=== PATIENT | female | born 1960 | race Caucasian/White ===

== ENCOUNTER 2020-03-24 08:09 | Outpatient (REF) | payer OTHER, SELFPAY ==
--- NOTE | 2020-03-24 08:14 | MM_ITS ---
EXAMINATION: MM SCREENING DIGITAL BREAST TOMOSYNTHESIS, BILATERAL CLINICAL INFORMATION: Screening. Asymptomatic. The lifetime risk of breast cancer based on the Tyrer-Cuzick Model is 6%. COMPARISON: Mammography: 03/19/2019, 03/10/2018 TECHNIQUE: Digital breast tomosynthesis is performed in both the craniocaudal and mediolateral oblique views along with computer-aided detection (CAD). Synthesized 2D images are generated from the tomosynthesis. Additional exaggerated left CC view is provided. FINDINGS: There are scattered areas of fibroglandular density (ACR BI-RADS breast composition Category b). There are no significant masses, abnormal calcifications, or other abnormalities. The axilla and skin contours are unremarkable. MM/MM tomosynthesis screening BI IMPRESSION: No mammographic evidence of malignancy. ASSESSMENT: BI-RADS 1: Negative RECOMMENDATION: Routine annual mammography screening. This patient's information was entered into a reminder system with a target due date for their next mammogram.
[2020-03-24 10:24] LABS: Hematocrit 38.3 % (37-47); Hemoglobin 12.4 g/dl (12.0-16.0); Mean Corpuscular HGB Conc 32.4 g/dl (31.0-35.0); Mean Corpuscular Hemoglobin 28.9 pg (27.0-33.0); Mean Corpuscular Volume 89.3 fL (80-98); Mean Platelet Volume 9.5 fL (9.4-12.3); Platelet Count 275 X10*3/uL (160-400); Red Blood Count 4.29 X10*6/uL (4.20-5.50); Red Cell Distribution Width 12.7 % (11.0-16.0); White Blood Count 3.9 X10*3/uL (4.8-10.8)
[2020-03-24 10:57] LABS: Alanine Aminotransferase 16 U/L (0-31); Albumin Level 4.6 g/dL (3.5-5.0); Alkaline Phosphatase 87 U/L (39-117); Anion Gap 14 (12-20); Aspartate Amino Transferase 21 U/L (5-31); Bilirubin Total 0.5 mg/dL (0.0-1.0); Blood Urea Nitrogen 15 mg/dL (9-16); Calcium 8.7 mg/dL (8.4-10.2); Carbon Dioxide 29 mmol/L (22-29); Chloride 102 mmol/L (96-108); Cholesterol 183 mg/dL; Estimated Glomerular Filt Rate > 60; Glucose Fasting 96 mg/dL (60-99); HDL Cholesterol 60 mg/dL; LDL Cholesterol Calculated 113 mg/dl; Sodium 141 mmol/L (135-145); Total Protein 7.2 g/dL (6.5-8.0); Triglycerides 53 mg/dL
== END 2020-03-24 08:10 | disposition home or self-care (01) ==
LOC: HO.MAMMO 08:09
PROVIDERS: PCP Internal Medicine; Visit Provider Nurse Practitioner Adult Health
DX: Z12.31 Encounter for screening mammogram for malignant neoplasm of breast (principal); E78.2 Mixed hyperlipidemia
CPT/HCPCS: 36415; 77063; 77067; 80053; 80061; 85027

== ENCOUNTER 2020-04-08 09:20 | Day surgery (SDC) | payer OTHER, SELFPAY ==
[2020-04-04 10:33] VITALS: BMI 25.4
--- NOTE | 2020-04-07 10:26 | P.CONAN_ITS ---
Documented by User: Laurie Kruger 04/07/20 10:26 HPI - Anesthesia Eval Consult details Narrative: 59yo F for Upper Endoscopy FORMERLY [facility], [facility] Past Medical History Medical History Depression Elevated cholesterol History of anxiety Surgical History Surgical History Hx of dilation and curettage Hx of sinus surgery Hx of tubal ligation Social History Social History Smoking Status: Unknown if ever smoked Use of substances other than those prescribed or required for medical reasons: No Advance Directives Information Provided: No Meds Allergies Allergy/AdvReac Type Severity Reaction Status Date / Time clarithromycin [From Biaxin] Allergy Unknown Verified 04/04/20 10:38 Home Medications Medication Instructions Recorded Confirmed Type Probiotic 04/04/20 04/04/20 History amitriptyline 1 tab PO DAILY 04/04/20 04/04/20 History lorazepam 0.5 mg PO BID PRN 04/04/20 04/04/20 History multivitamin 1 tab PO DAILY 04/04/20 04/04/20 History omeprazole 1 cap PO DAILY 04/04/20 04/04/20 History paroxetine HCl 1 tab PO DAILY 04/04/20 04/04/20 History simvastatin 1 tab PO BEDTIME 04/04/20 04/04/20 History Exam Exam Date and Time: April 07, 2020 1026 Height,Weight and Vital Signs: Height 5 ft 3.5 in Weight 66.224 kg Pertinent Lab Results Pertinent Lab Results: grossly nml Assessment and Plan Assessment Anesthesia Assessment: Chart Reviewed Documented by User: Jelly Mckeon 04/08/20 10:41 [facility] Past Medical History Medical History Depression Elevated cholesterol History of anxiety Surgical History Surgical History Hx of dilation and curettage Hx of sinus surgery Hx of tubal ligation Social History Social History Smoking Status: Unknown if ever smoked Use of substances other than those prescribed or required for medical reasons: No Advance Directives Information Provided: No Meds Allergies Allergy/AdvReac Type Severity Reaction Status Date / Time clarithromycin [From Biaxin] Allergy Unknown Verified 04/04/20 10:38 Home Medications Medication Instructions Recorded Confirmed Type Probiotic 04/04/20 04/04/20 History amitriptyline 1 tab PO DAILY 04/04/20 04/04/20 History lorazepam 0.5 mg PO BID PRN 04/04/20 04/04/20 History multivitamin 1 tab PO DAILY 04/04/20 04/04/20 History omeprazole 1 cap PO DAILY 04/04/20 04/04/20 History paroxetine HCl 1 tab PO DAILY 04/04/20 04/04/20 History simvastatin 1 tab PO BEDTIME 04/04/20 04/04/20 History Exam Airway Mallampati Class: I TM Dist: >3cm Neck ROM: Full Loose/Missing/Broken Teeth: No Heart: RRR Lungs: CTA Assessment and Plan Assessment Anesthesia Assessment: Anesthesia Plan Discussed and Chart Reviewed Final Anesthetic Review NPO: Yes ASA Class: II Final Preanesthetic Review: Meds/Allgs Chart Reviewed, Consent Obtained/Reviewed and Anes Risks/Benef Reviewed Patient Risk: Low Procedure Risk: Intermediate Anesthetic Plan Anesthetic Plan: MAC: Disposition: Standard PACU
--- NOTE | 2020-04-08 09:58 | MHC.SHP ---
Pre-Procedural Eval Section B Chief Complaint: GERD Details of Present Illness: GERD Relevant Family History (Specify if Yes): No Relevant Social History: None Present Medications: see Short Stay Collaborative assessment Medical History: No relevant PMH History of Previous Operations: No relevant previous surgery Allergies: Allergies Allergy/AdvReac Type Severity Reaction Status Date / Time clarithromycin [From Biaxin] Allergy Unknown Verified 04/04/20 10:38 Review of Systems Sugical H&P ROS: Negative: Constitution, Cardiovascular, Respiratory, Neurological, Psychiatric, Hem-Onc, Allergic/Immunologic, Gastrointestinal, Genitourinary, Musculoskeletal, Integumentary, Endocrine and Eyes/Ears/Nose/Throat Exam Surgical H&P Exam: Normal: HEENT, Normal: Heart, Normal: Lungs, Normal: Extremities, Normal: Abdomen, Normal: Skin and Normal: Neurological Plan Diagnosis/Plan: Unchanged Patient has been examined and remains a candidate for the planned procedure
[2020-04-08 10:02] VITALS: BP 153/89; PULSE 81; RESP 20; TEMP 35.9; O2SAT 99
[2020-04-08] MEDS: Lactated Ringers 1,000 ML 100 ML IVCONT (10:14)
[2020-04-08 11:13] VITALS: BP 136/83; PULSE 97; RESP 16; TEMP 36.9; O2SAT 95
--- NOTE | 2020-04-08 11:21 | PM.OP ---
Brief Operative Note Date of procedure: 04/08/20 Pre-op diagnosis: gerd Post-op diagnosis: same Procedure: egd Surgeon: rEic Rebollar Anesthesia: MAC Estimated blood loss (mL): 5 Pathology: other (antral,egj biopsies) Condition: stable Disposition: PACU
[2020-04-08 11:29] VITALS: BP 128/86; PULSE 91; RESP 18; O2SAT 99
--- NOTE | 2020-04-08 11:48 | OP_ITS ---
SURGEON: Eric Rebollar MD INDICATIONS: Gastroesophageal reflux disease. PREOPERATIVE DIAGNOSIS: POSTOPERATIVE DIAGNOSIS: PROCEDURE PERFORMED: Upper endoscopy with biopsy. ESTIMATED BLOOD LOSS: COMPLICATIONS: ANESTHESIA: Monitored anesthesia care. ASSISTANTS: SPECIMENS: DESCRIPTION OF PROCEDURE: History and physical performed. The risks and benefits of the procedure were explained to the patient, and informed consent was obtained. The patient was placed in the left lateral decubitus position. The Olympus video gastroscope was introduced into the esophagus, stomach, and duodenum. Examination was performed and the scope was removed. She tolerated the procedure well with a brief period of oxygen desaturation, that was managed by Dr. Mckeon. She was returned to the recovery room in stable condition. FINDINGS: Esophagus: The esophagus showed an irregular EG junction without esophagitis. Biopsies were obtained from the EG junction. Stomach: The stomach was normal. Antral biopsies were obtained to rule out Helicobacter pylori. Duodenum: The bulb and second portion were normal. IMPRESSION: Gastroesophageal reflux disease. RECOMMENDATIONS: 1. Follow up the biopsy results. 2. Continue omeprazole. MD MARTIN Hester/MODL / [id number]
[2020-04-08 12:00] VITALS: BP 144/86; PULSE 80; RESP 13; TEMP 36.1; O2SAT 100
--- NOTE | 2020-04-08 12:19 | HO.POSTANES ---
Post Anesthesia Evaluation Post Anesthesia Evaluation Vital Signs: Vital Signs Temp Pulse Resp BP Pulse Ox 04/08/20 12:00 97 F 80 13 144/86 H 100 04/08/20 11:29 91 18 128/86 99 04/08/20 11:13 98.5 F 97 16 136/83 95 04/08/20 10:02 96.7 F L 81 20 153/89 H 99 Anesthesia: Monitored Mental Status: Awake Pain Control: Satisfactory Nausea/Vomiting: None Hydration: Adequate Anesthesia-Related Issues: No Anes. Related Issues
== END 2020-04-08 12:21 | disposition home or self-care (01) ==
PROVIDERS: PCP Internal Medicine; Visit Provider Internal Medicine Gastroenterology
PROC: 0DJ08ZZ Inspection of Upper Intestinal Tract, Via Natural or Artificial Opening Endoscopic (ICD-10-PCS; CPT 43235; principal; 2020-04-08 10:30)
DX: K21.00 Gastro-esophageal reflux disease with esophagitis, without bleeding (principal); F32.9 Major depressive disorder, single episode, unspecified; E78.00 Pure hypercholesterolemia, unspecified; Z79.899 Other long term (current) drug therapy; Z88.1 Allergy status to other antibiotic agents
CPT/HCPCS: 43239; 88305; 88342

== ENCOUNTER 2021-03-25 09:34 | Outpatient (REF) | payer OTHER, SELFPAY ==
--- NOTE | ~2021-03-25 | MM_ITS ---
EXAMINATION: MM SCREENING DIGITAL BREAST TOMOSYNTHESIS, BILATERAL CLINICAL INFORMATION: Screening. Asymptomatic. The lifetime risk of breast cancer based on the Tyrer-Cuzick Model is 5%. COMPARISON: Mammography: 03/24/2020, 03/19/2019, 03/10/2018 TECHNIQUE: Digital breast tomosynthesis is performed in both the craniocaudal and mediolateral oblique views along with computer-aided detection (CAD). Synthesized 2D images are generated from the tomosynthesis. FINDINGS: There are scattered areas of fibroglandular density (ACR BI-RADS breast composition Category b). There are no significant masses, abnormal calcifications, or other abnormalities. No developing density or significant changes from prior studies. MM/MM tomosynthesis screening BI IMPRESSION: No mammographic evidence of malignancy. ASSESSMENT: BI-RADS 1: Negative RECOMMENDATION: Routine annual mammography screening. This patient's information was entered into a reminder system with a target due date for their next mammogram.
== END 2021-03-25 09:35 | disposition home or self-care (01) ==
LOC: HO.MAMMO 09:34
PROVIDERS: PCP Internal Medicine; Visit Provider Nurse Practitioner Adult Health
DX: Z12.31 Encounter for screening mammogram for malignant neoplasm of breast (principal)
CPT/HCPCS: 77063; 77067

== ENCOUNTER 2022-03-30 10:13 | Outpatient (REF) | payer OTHER, SELFPAY ==
--- NOTE | ~2022-03-30 | MM_ITS ---
EXAMINATION: MM SCREENING DIGITAL BREAST TOMOSYNTHESIS, BILATERAL CLINICAL INFORMATION: Screening. Asymptomatic. The lifetime risk of breast cancer based on the Tyrer-Cuzick Model is 5.8%. COMPARISON: Mammography: March 25, 2021 and studies dating back to January 29, 2016 TECHNIQUE: Digital breast tomosynthesis is performed in both the craniocaudal and mediolateral oblique views along with computer-aided detection (CAD). Synthesized 2D images are generated from the tomosynthesis. FINDINGS: There are scattered areas of fibroglandular density (ACR BI-RADS breast composition Category b). There are no significant masses, abnormal calcifications, or other abnormalities. MM/MM tomosynthesis screening BI IMPRESSION: No significant changes from prior exam. ASSESSMENT: BI-RADS 1: Negative RECOMMENDATION: Routine annual mammography screening. This patient's information was entered into a reminder system with a target due date for their next mammogram.
== END 2022-03-30 10:14 | disposition home or self-care (01) ==
LOC: HO.MAMMO 10:13
PROVIDERS: PCP Nurse Practitioner Adult Health; Visit Provider Internal Medicine
DX: Z12.31 Encounter for screening mammogram for malignant neoplasm of breast (principal)
CPT/HCPCS: 77063; 77067

== ENCOUNTER 2022-07-27 09:38 | Day surgery (SDC) | payer OTHER, SELFPAY ==
--- NOTE | 2022-07-26 13:18 | P.CONAN_ITS ---
Documented by User: Laurie Kruger NP 07/26/22 13:19 HPI - Anesthesia Eval Consult details Narrative: 61yo F for Upper Endoscopy and Colonoscopy PMFSH Active Problems Active Problems: All Active Problems (Updated 07/26/22 @ 12:57 by Mi Ray RN) Right otitis media (Acute) Past Medical History Medical History CHF (congestive heart failure) Depression Elevated cholesterol History of anxiety HTN (hypertension) LVH (left ventricular hypertrophy) GRISELDA on CPAP Surgical History Surgical History H/O colonoscopy History of esophagogastroduodenoscopy (EGD) Hx of dilation and curettage Hx of sinus surgery Hx of tubal ligation Social History Social History Patient Tobacco Use Status: Never used Tobacco Are you DNR?: No Advance Directives: No Advance Directives Information Provided: Yes Meds Allergies Allergy/AdvReac Type Severity Reaction Status Date / Time clarithromycin [From Biaxin] Allergy Unknown Verified 11/03/20 14:15 Home Medications Medication Instructions Recorded Confirmed Last Taken Type multivitamin 1 tab PO DAILY 04/04/20 11/03/20 07/25/22 History omeprazole 20 mg capsule,delayed 1 cap PO DAILY 04/04/20 11/03/20 07/26/22 History release paroxetine HCl 20 mg tablet 1 tab PO DAILY 04/04/20 11/03/20 07/26/22 History simvastatin 20 mg tablet 1 tab PO BEDTIME 04/04/20 11/03/20 07/25/22 History carvedilol 6.25 mg tablet 1 tab PO BID 07/26/22 07/26/22 07/27/22 History sacubitril 24 mg-valsartan 26 mg 1 tab PO BID 07/26/22 07/26/22 07/27/22 History tablet (Entresto) Exam Exam Date and Time: July 26, 2022 131 Assessment and Plan Assessment Anesthesia Assessment: Chart Reviewed Documented by User: Tamanna Blankenship MD 07/27/22 12:03 [facility] Active Problems Active Problems: All Active Problems (Updated 07/27/22 @ 12:00 by Tamanna Blankenship MD) Right otitis media (Acute) CHF. On entresto, carvedilol. Asymptomatic. Referred to cardiology by PCP secondary ?abnormal EKG. Echo done showed reduced EF. Patient states extensive work-up done and CHF thought to be secondary to GRISELDA. No results available. Being followed by cardiology. Last note from 01/18 states stable. Improvement in EF. No signs of overload. In the absence of symptoms and with Vital signs being stable, will proceed Past Medical History Medical History CHF (congestive heart failure) Depression Elevated cholesterol History of anxiety HTN (hypertension) LVH (left ventricular hypertrophy) GRISELDA on CPAP Family History Family history of problems with anesthesia: No Surgical History Surgical History H/O colonoscopy History of esophagogastroduodenoscopy (EGD) Hx of dilation and curettage Hx of sinus surgery Hx of tubal ligation History of Problems with Anesthesia: No Social History Social History Patient Tobacco Use Status: Never used Tobacco Are you DNR?: No Advance Directives: No Advance Directives Information Provided: Yes Meds Allergies Allergy/AdvReac Type Severity Reaction Status Date / Time clarithromycin [From Biaxin] Allergy Unknown Verified 11/03/20 14:15 Home Medications Medication Instructions Recorded Confirmed Last Taken Type multivitamin 1 tab PO DAILY 04/04/20 11/03/20 07/25/22 History omeprazole 20 mg capsule,delayed 1 cap PO DAILY 04/04/20 11/03/20 07/26/22 History release paroxetine HCl 20 mg tablet 1 tab PO DAILY 04/04/20 11/03/20 07/26/22 History simvastatin 20 mg tablet 1 tab PO BEDTIME 04/04/20 11/03/20 07/25/22 History carvedilol 6.25 mg tablet 1 tab PO BID 07/26/22 07/26/22 07/27/22 History sacubitril 24 mg-valsartan 26 mg 1 tab PO BID 07/26/22 07/26/22 07/27/22 History tablet (Entresto) Exam Height,Weight and Vital Signs: Height 5 ft 3.5 in Weight 69.853 kg Vital Signs Temp Pulse Resp BP Pulse Ox O2 Del Method 07/27/22 09:54 98.4 F 74 17 120/70 98 Room Air Airway Mallampati Class: II TM Dist: >3cm Neck ROM: Full Loose/Missing/Broken Teeth: No (Veneers front teeth intact. Denies broken, loose, missing teeth) Heart: RRR Lungs: CTAB Assessment and Plan Assessment Anesthesia Assessment: Anesthesia Plan Discussed Final Anesthetic Review Family History of Problems with Anesthesia: No History of Problems with Anesthesia: No NPO: Yes ASA Class: III Final Preanesthetic Review: No Changes in Pt Med Stat, Meds/Allgs Chart Reviewed, Consent Obtained/Reviewed and Anes Risks/Benef Reviewed Patient Risk: Intermediate Procedure Risk: Low Assessment/Block/Sedation in SS: Assess/Block/Sedation-SS Anesthetic Plan Anesthetic Plan: MAC: Disposition: Standard PACU
[2022-07-27 06:24] VITALS: BMI 26.8
[2022-07-27 09:54] VITALS: BP 120/70; PULSE 74; RESP 17; TEMP 36.9; O2SAT 98
[2022-07-27] MEDS: Lactated Ringers 1,000 ML 50 ML IVCONT (10:28)
--- NOTE | 2022-07-27 11:16 | MHC.SHP ---
Pre-Procedural Eval Section A Date of Service: 07/27/22 The patient is an INPATIENT: No Changes since office visit: No Cold of Flu in the past 2 weeks, No New Medical Problems, No Changes in Medication and No Patient answered all questions The History & Physical has been completed within 30 days and I have reviewed it.: Yes Section B Chief Complaint: barretts,screening Allergies: Allergies Allergy/AdvReac Type Severity Reaction Status Date / Time clarithromycin [From Biaxin] Allergy Unknown Verified 11/03/20 14:15 Plan I have reviewed the history and physical and performed a pertinent physical examination on my patient. No changes have occurred unless specified. Time Spent With Patient Time: Total time managing care of this patient today ____ minutes.
[2022-07-27 12:35] VITALS: BP 103/62; PULSE 72; RESP 16; TEMP 37.1; O2SAT 98
--- NOTE | 2022-07-27 12:35 | PM.OP ---
Brief Operative Note Date of Service: 07/27/22 Pre-op diagnosis: barretts,screening Post-op diagnosis: same Procedure: egd colon Surgeon: Eric Rebollar Anesthesia: MAC Was an Purchasing Internship used for this Procedure?: No Estimated blood loss (mL): 2 Pathology: other Condition: stable Disposition: PACU
[2022-07-27 12:50] VITALS: BP 109/66; PULSE 60; RESP 18; O2SAT 98
[2022-07-27 13:05] VITALS: BP 115/64; PULSE 69; RESP 18; O2SAT 98
--- NOTE | 2022-07-27 13:05 | OP_ITS ---
SURGEON: Eric Rebollar MD INDICATIONS: 1. Rascon esophagus. 2. Colon cancer screening. PREOPERATIVE DIAGNOSIS: Upper endoscopy with biopsy, colonoscopy to the terminal ileum. POSTOPERATIVE DIAGNOSIS: PROCEDURE PERFORMED: ESTIMATED BLOOD LOSS: COMPLICATIONS: ANESTHESIA: Monitored anesthesia care. ASSISTANTS: SPECIMENS: DESCRIPTION OF PROCEDURE: The procedure was performed on 07/27/2022. The history and physical were performed. The risks and benefits of the procedure were explained to the patient. Informed consent was obtained. The patient was placed in the left lateral decubitus position. The Olympus video gastroscope was introduced into the esophagus, stomach, and duodenum. Examination was performed. The scope was removed. She tolerated the procedure well and was repositioned for colonoscopy. A digital rectal exam was performed and was found to be normal. The Olympus pediatric video colonoscope was introduced into the rectum and advanced to the cecum. The cecum was identified by transillumination, palpation, and identification of ileocecal valve. Examination was performed. The scope was removed. She tolerated both procedures well and was returned to the recovery area in stable condition. FINDINGS: Upper endoscopy: 1. Esophagus: The esophagus was normal. There was a less than 1 cm area suspicious for possible Rascon esophagus at the EG junction. Biopsies were obtained. There were no raised lesions or ulcerated areas. 2. Stomach: The stomach was normal. 3. Duodenum: The bulb and 2nd portion were normal. Colonoscopy: The terminal ileum was examined and appeared normal. The visualized colonic mucosa was normal. The quality of the prep was good. No polyps were identified. Retroflexed examination showed moderate-sized internal hemorrhoids. IMPRESSION: 1. Rascon esophagus. 2. Normal colonoscopy. RECOMMENDATION: 1. Follow up the biopsy results. 2. Repeat colonoscopy is recommended in 10 years for average risk individuals. MD MARTIN Hester/SERAFIN / [id number] [facility]
== END 2022-07-27 14:30 | disposition home or self-care (01) ==
PROVIDERS: PCP Nurse Practitioner Adult Health; Visit Provider Internal Medicine Gastroenterology
PROC: (CPT 45378; principal; 2022-07-27 11:10)
DX: Z12.11 Encounter for screening for malignant neoplasm of colon (principal); Z86.010 Personal history of colon polyps; K64.8 Other hemorrhoids; K22.70 Barrett's esophagus without dysplasia; K21.9 Gastro-esophageal reflux disease without esophagitis; K31.A0 Gastric intestinal metaplasia, unspecified; I50.9 Heart failure, unspecified; I51.7 Cardiomegaly; E78.00 Pure hypercholesterolemia, unspecified; F41.8 Other specified anxiety disorders; M81.0 Age-related osteoporosis without current pathological fracture; G47.33 Obstructive sleep apnea (adult) (pediatric); Z79.899 Other long term (current) drug therapy; Z99.89 Dependence on other enabling machines and devices; Z88.8 Allergy status to other drugs, medicaments and biological substances
CPT/HCPCS: 45378; 43239; 88305; J3010

== ENCOUNTER 2023-04-04 10:12 | Outpatient (REF) | payer OTHER, SELFPAY | END 2023-04-04 10:13 | disposition home or self-care (01) | LOC: HO.MAMMO 10:12 | PROVIDERS: PCP Internal Medicine; Visit Provider Nurse Practitioner Adult Health | DX: Z12.31 Encounter for screening mammogram for malignant neoplasm of breast (principal) | CPT/HCPCS: 77063; 77067 ==

== ENCOUNTER → 2023-04-04 10:15 | Outpatient (BNV) | payer OTHER, SELFPAY | PROVIDERS: PCP Internal Medicine; Visit Provider Radiology Diagnostic Radiology | DX: Z12.31 Encounter for screening mammogram for malignant neoplasm of breast (principal) | CPT/HCPCS: 77063; 77067 ==

== ENCOUNTER 2024-05-17 14:34 | Outpatient (REF) | payer OTHER, SELFPAY | END 2024-05-17 14:35 | disposition home or self-care (01) | LOC: HO.MAMMO 14:34 | PROVIDERS: PCP Internal Medicine; Visit Provider Internal Medicine | DX: Z12.31 Encounter for screening mammogram for malignant neoplasm of breast (principal) | CPT/HCPCS: 77063; 77067 ==

== ENCOUNTER → 2024-05-17 14:45 | Outpatient (BNV) | payer OTHER, SELFPAY | PROVIDERS: PCP Internal Medicine; Visit Provider Internal Medicine | DX: Z12.31 Encounter for screening mammogram for malignant neoplasm of breast (principal) | CPT/HCPCS: 77063; 77067 ==

== ENCOUNTER 2025-05-27 14:49 | Outpatient (REF) | payer OTHER, SELFPAY ==
--- NOTE | ~2025-05-27 | MM_ITS ---
EXAMINATION: MM SCREENING DIGITAL BREAST TOMOSYNTHESIS, BILATERAL CLINICAL INFORMATION: Screening. Asymptomatic. COMPARISON: Mammography: Comparison is made with available priors TECHNIQUE: Digital breast mammography with tomosynthesis is performed in both the craniocaudal and mediolateral oblique views along with computer-aided detection (CAD). FINDINGS: There are scattered areas of fibroglandular density. There are no significant masses, abnormal calcifications, or other abnormalities. MM/MM tomosynthesis screening BI IMPRESSION: No mammographic evidence of malignancy. ASSESSMENT: BI-RADS Category 1: Negative RECOMMENDATION: Routine annual mammography screening. 1 year F/U This examination should not preclude the clinical evaluation of a suspicious palpable abnormality. This patient's information was entered into a reminder system with a target due date for their next mammogram. Electronically signed by: Kenyetta Diaz DO 05/29/2025 01:10 PM [facility]
--- OUTSIDE RECORDS SUMMARY | 2025-05-27 17:11 | XMS_ITS | Patient Health Record ---
Author Organization [facility] Address [address] [place] [address] Care Team Providers Care Information Developer Name Role Phone Shankar Hogan Primary Care Provider Eric Velasquez Jr Unavailable [phone] Allergies Allergen (clinical drug ingredient) Drug/Non Drug Allergy documented on EMR Reaction Allergy Type Onset Date Status Biaxin Unknown Drug Allergy Active Reason For Referral No Information Medications Medication SIG (Take, Route, Frequency, Duration) Notes Start Date End Date Status Entresto 24-26 MG Tablet 1 tablet Orally Twice a day; Duration: 30 day(s) Active PARoxetine HCl 30 MG Tablet 1 tablet in the morning Orally Once a day Active Reclast 5 MG/100ML Solution as directed Intravenous ONCE A YEAR IN FALL Active Omeprazole 20 MG Capsule Delayed Release TAKE 1 CAPSULE BY MOUTH TWICE A DAY; Duration: 90 Active Carvedilol 6.25 MG Tablet 1 tablet with food Orally Twice a day; Duration: 30 day(s) Active Tobramycin-dexAMETHason e 0.3-0.1 % Suspension Ophthalmic; Duration: 12 Days Active Probiotic - Capsule as directed Orally Not-Taking/PRN Amitriptyline HCl 25 MG Tablet TAKE 1 TABLET BY MOUTH EVERY DAY AT BEDTIME FOR 90 DAYS Oral; Duration: 90 Active LORazepam 0.5 MG Tablet Orally prn prn Active Multivitamin Adult A ctive Simvastatin 20mg Act lindsay Immunizations Vaccine Route Administration Date Status Comme nts Influenza Unknown 01/28/2019 Administered Influenza Unknown 03/17/2022 Administered Influenza Unknown 03/13/2024 Administered Social History Social History Additional Details Category Social Info Options Details Miscellaneous: Marital status: Occupation: disability supervisor claims// [employer] Problems Problem Type SNOMED Code ICD Code Onset Dates Problem Status W/U Status Risk Notes Problem Colon cancer screening (092746808) Colon cancer screening (Z12.11) Active confirmed Problem Rascon's esophagus (044394394) 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 (K22.70) Active confirmed Problem Irritable bowel syndrome with diarrhea (806685195) Irritable bowel syndrome with diarrhea (K58.0) Active confirmed Problem Gastroesophageal reflux disease without esophagitis (333462422) Gastroesophageal reflux disease without esophagitis (K21.9) Active confirmed Problem Rascon esophagus (215115716) Rascon esophagus (K22.70) Active confirmed Problem Gastric intestinal metaplasia (89293282) Gastric intestinal metaplasia (K31.A0) Active confirmed Vital Signs Temperature 97.3 degrees Fahrenheit 07/23/2024 Blood pressure diastolic 01 mm Hg 07/23/2024 Height 63.5 in 07/23/2024 Blood pressure systolic 001 mm Hg 07/23/2024 Weight 169.6 lbs 07/23/2024 BMI 29.57 kg/m2 07/23/2024 Encounters Encounter Location Date Provider Diagnosis [facility] [address] [place] [phone] 07/23/2024 Eric Rebollar Jr 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 K22.70 ; Gastroesophageal reflux disease without esophagitis K21.9 and Colon cancer screening Z12.11 [facility] [address] [place] [id number] 05/31/2024 Eric Rebollar Jr Assessments Encounter Date Diagnosis (ICD Code) Assessment Notes Treatment Notes Treatment Clinical Notes Section Notes 07/23/2024 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 (ICD-10 - K22.70) Rascon esophagus material was printed We discussed gastroesophageal reflux disease and Rascon's esophagus today. She is stable on her present regimen and we will continue this. We discussed diet, lifestyle modifications, and weight management regarding the treatment of reflux. Follow-up will be in 12 months. She is up-to-date on colorectal cancer screening. She should follow a high-fiber diet for her occasional constipation. 07/23/2024 Gastroesophageal reflux disease without esophagitis (ICD-10 - K21.9) We discussed gastroesophageal reflux disease and Rascon's esophagus today. She is stable on her present regimen and we will continue this. We discussed diet, lifestyle modifications, and weight management regarding the treatment of reflux. Follow-up will be in 12 months. She is up-to-date on colorectal cancer screening. She should follow a high-fiber diet for her occasional constipation. 07/23/2024 Colon cancer screening (ICD-10 - Z12.11) We discussed gastroesophageal reflux disease and Rascon's esophagus today. She is stable on her present regimen and we will continue this. We discussed diet, lifestyle modifications, and weight management regarding the treatment of reflux. Follow-up will be in 12 months. She is up-to-date on colorectal cancer screening. She should follow a high-fiber diet for her occasional constipation. Plan Of Treatment Future Test Test Name Order Date COLONOSCOPY 12/08/2017 UPPER GI ENDOSCOPY 06/28/2022 COLONOSCOPY 06/28/2022 Next Appt Details Provider Name:Eric sanon Jr, 07/24/2025 11:00:00 AM, [address] [place] [address], [address], [place], [phone], Insurance Providers Payer Name Payer Address Payer Phone Subscriber Number Group Number Insured Name Patient Relationship to Insured Coverage Start Date Coverage End Date [facility] [address] [place] [phone] [id number] [employer] Self - patient is the insured Medical (General) History Medical History History ICD Code elevated cholesterol depression/anxiety Osteoporosis GRISELDA/CPAP CHF/LVH Hypertension osteoporosis Rascon's esophagus, EGD 07/01 3, no intestinal metaplasia on biopsy, five-year followup Colonoscopy 07/22, normal, ten-year follo wup Surgical History Surgery Date(Month/Year) D&C sinus surgery tubal ligation
--- OUTSIDE RECORDS SUMMARY | 2025-05-27 17:11 | XMS_ITS | Patient Health Record ---
Author [facility] Address [address] [facility] [place] [address] Care Team Providers Care Platinum Smith Name Role Phone Samira ALFREDO, Shankar Primary Care Provider UnavailJanessa Zaragoza Unavailable [phone] Allergies Allergen (clinical drug ingredient) Drug/Non Drug Allergy documented on EMR Reaction Allergy Type Onset Date Status Biaxin metal taste, bruising Drug Allergy Active azithromycin Azithromycin metal taste, bruising Drug Allergy Active erythromycin Erythromycin metal taste, bruising Drug Allergy Active Reason For Referral No Information Medications Medication SIG (Take, Route, Fr equency, Duration) Notes Start Date End Date Status Simvastatin 20 MG 1 tablet in the even ing Orally Once a day; Duration: 30 day(s) Active PARoxetine HCl 20 MG 1 tablet in the mor matthew Orally Once a day; Duration: 30 day(s) Active Entresto 24-26 MG 1 tablet Orally Twic e a day; Duration: 30 day(s) Active Carvedilol 6.25 MG 1 tablet with food O rally Twice a day; Duration: 30 day(s) Activ e Omeprazole 20 MG 1 capsule 30 minutes before morning meal Orally Once a day; Duration: 30 day(s) Active Social History Tobacco Use: Social History Observation Description Date Details (start date - stop date) Never Smoker NA - NA Tobacco Use/Smoking Question Answer Notes Are you a: nonsmoker Additional Findings: Tobacco Non-User Current no n-smoker Alcohol Screen Question Answer Notes Did you have a drink containing alcohol in the p ast year? No Points 0 Interpretation Negative Tobacco use other than smoking: Question Answer Notes Are you an other tobacco user? No Plan Of Treatment No Information Insurance Providers Payer Name Payer Address Payer Phone Subscriber Number Group Number Insured Name Patient Relationship to Insured Coverage Start Date Coverage End Date [facility] [address] [facility] [place] [address] [phone] [id number] Joana Reyes Self - patient is the insured Medical (General) History Medical History History ICD Code Anxiety covid-19 Depression Heart disease Reflux ( GERD) chronic sinusitis Mumps Chicken pox Surgical History Surgery Date(Month/Year) sinus surgery D&C
--- OUTSIDE RECORDS SUMMARY | 2025-05-27 17:11 | XMS_ITS | Clinical Summary ---
Author Organization [facility] Address [address] [place] [address] Phone Care Team Providers Care Pediatric Neurologist Name Role Phone Shankar Hogan MD Primary Care Provider [phone] Allergies Active Allergy Reactions Criticality Noted Date Comments Clarithromycin 10/12/2021 Bruising/ wt loss Hexylresorcinol-Menthol 06/01/2023 Medications PARoxetine (PAXIL) 30 mg tablet Take 1 Tablet by mouth every morning. Active amitriptyline (ELAVIL) 25 mg tablet Take 1 Tablet by mouth at bedtime. Active omeprazole (PriLOSEC) [address] capsule Take 1 Capsule by mouth daily. Active simvastatin (ZOCOR) 20 mg tablet Take 1 Tablet by mouth at bedtime. Active simvastatin (ZOCOR) 40 mg tablet Take 1 tablet (40 mg total) by mouth at bedtime. Active sacubitriL-valsa rtan (Entresto) 24-26 mg per tabletIndication s:Chronic congestive heart failure, unspecified heart failure type (CMS/HCC V24, CMS/HCC V28) Take 1 tablet by mouth 2 (two) times a day. 180 tablet 3 01/03/2025 Active carvediloL (COREG) 6.25 mg tablet TAKE 1 TABLET BY MOUTH TWICE A DAY WITH MEALS 180 tablet 3 01/23/2025 Active Active Problems Problem Noted Date Diagnosed Date LVH (left ventricular hypertrophy) 11/23/2021 Overview (02/28/2024): Last Assessment & Plan: Blood pressure well-controlled. Patient states strict compliance with her CPAP since being diagnosed with obstructive sleep apnea. Will update surveillance echocardiogram prior to her next office visit. Palpitation 10/14/2021 Overview (02/28/2024): Last Assessment & Plan: Denies recurrence. Continue Coreg Assessment & Plan (11/27/2024 2:46 PM EDT): Orders: ECG 12 lead CHF (congestive heart failure) 10/14/2021 Overview (02/28/2024): Last Assessment & Plan: Euvolemic upon exam. She denies any exertional symptoms. Continue on Entresto and carvedilol. We will update surveillance echocardiogram prior to her next office visit. Assessment & Plan (12/18/2024 9:36 AM EDT): Essential (primary) hypertension 10/12/2021 Overview (02/28/2024): Last Assessment & Plan: Well-controlled during today's exam with a reading of 110/76. Educated on the importance of diet lifestyle to help further assist in reducing blood pressure. The patient was encouraged to follow low-salt low-fat diet, make purposeful strides towards weight loss, and engage in routine aerobic exercise as tolerated. Assessment & Plan (12/18/2024 9:36 AM EDT): Mixed hyperlipidemia 10/12/2021 Overview (02/28/2024): Last Assessment & Plan: Her last fasting lipid profile was from August 2022. At that time her total cholesterol is 149, triglycerides 62, HDL 57 and LDL of 80. She will continue on her current dose of simvastatin and be mindful of her dietary fat intake. Encounters Date Type Department Care Team Description 05/21/2025 Telephone [facility] [address] [place] [address] Les Leavitt MD from Last 3 Months Surgical History Surgery Date Site/Laterality Comments SINUS SURGERY PROCEDURE: [place] UNLISTED PROCEDURE ACCESSORY SINUSES Medical History Medical History Date Comments Recurrent major depressive d isorder, in full remission ([facility] V24) DX:Recurrent major depres sive disorder, in full remission ([facility]) GERD with esophagitis DX:GERD wi th esophagitis; COMMENT: w/o hemorrhage IBS (irritable bowel syndrome) D X:IBS (irritable bowel syndrome) Major depressive disorder in full remission ([facility] V24) DX:Major depressive disorder in full remission ([facility]) Family History Medical History Relation Name Comments Other: Other Brother Heart attack Father Other: Heart Disease Father Depression Mother Hypertension Mother Mental illness Mother Hypertension Other Other: Musa-Parkinson's syndrome Other Relation Name Status Comments Brother WPW Father Alive Mother Alive Other Social History Tobacco Use Types Packs/Day Years Used Date Smoking Tobacco: Never Smokeless Tobacco: Never Alcohol Use Standard Drinks/Week Comments Yes 0 (1 standard drink = 0.6 oz pur e alcohol) occasional Comments Unknown Sex and Gender Information Value Date Recorded Sex Assigned at Not on file Legal Sex Female 12:41 PM EST Gender Identity Not on file Sexual Orientation Not on file Last Filed Vital Signs Vital Sign Reading Time Taken Comments Blood Pressure 130/84 11/27/2024 1:13 PM EDT Pulse 74 11/27/2024 1:13 PM EDT Temperature - - Respiratory Rate - - Oxygen Saturation 97% 11/27/2024 1:13 PM EDT Inhaled Oxygen Concentration - - Weight 79.4 kg (175 lb) 11/27/2024 1:13 PM EDT Height 160 cm (5' 3 ) 11/27/2024 1:13 PM EDT Body Mass Index 31 11/27/2024 1:13 PM EDT Plan of Treatment Health Maintenance Due Date Last Done Comments Breast Cancer Screening 1962 Colorectal Cancer Screening: Colonoscopy 1962 DTaP,Tdap,and Td Vaccines (1 - Tdap) 1981 Pneumococcal Vaccine: 50+ Ye ars (1 of 2 - PCV) 1981 Cervical Cancer Screening: P ap Smear 09/02/1983 RSV Immunization Adult Patie nts (1 - Risk 50-74 years 1-dose series) 2012 Zoster Vaccines (1 of 2) 2012 Cholesterol Screening (Lipid Panel) 05/09/2022 HIV Screening 05/09/2022 Hepatitis C Screening 05/09/2022 Hypertension/CHF/CAD Annual BMP Blood Test 05/09/2022 Osteoporosis Screening (Bone Density Screening) 05/09/2022 Social Influencers of Health Screening 05/09/2022 Depression Screening 05/30/2024 COVID-19 Vaccine ( - 2024-2 6 season) 2025 Influenza Vaccine (#1) 2025 HIB Vaccines Aged Out No longer eligi ble based on patient's age to complete this topic HPV Vaccines Aged Out No longer eligi ble based on patient's age to complete this topic Hepatitis A Vaccines Aged Out No long er eligible based on patient's age to complete this topic Hepatitis B Vaccines Aged Out No long er eligible based on patient's age to complete this topic IPV Vaccines Aged Out No longer eligi ble based on patient's age to complete this topic MMR Vaccines Aged Out No longer eligi ble based on patient's age to complete this topic Meningococcal ACWY Vaccine Aged Out N o longer eligible based on patient's age to complete this topic Meningococcal B Vaccine Aged Out No l onger eligible based on patient's age to complete this topic RSV Immunization Patients Un olivia 20 months Aged Out No longer eligible b ased on patient's age to complete this topic Varicella Vaccines Aged Out No longer eligible based on patient's age to complete this topic Insurance [facility] Care Teams Pediatric Neurologist Relationship Specialty Start Date End Date Shankar Hogan MD [address] PCP - General Internal Medicine 09/09/21
--- OUTSIDE RECORDS SUMMARY | 2025-05-27 17:11 | XMS_ITS | Patient Health Record ---
Author Organization [facility] Address [address] [place] [address] Care Team Providers Care Store Sales Consultant Name Role Phone REGGIE JAMEY Primary Care Provider Allergies Allergen (clinical drug ingredient) Drug/Non Drug Allergy documented on EMR Reaction Allergy Type Onset Date Status clarithromycin Clarithromycin bruising/wt loss Drug Allergy Active Reason For Referral Reason PATIENT WAS SEEN, NO TE IN CHART ... (08/13/24, 08/06/24 W appt) [facility] Allergy Testing Referral Organization [facility] Referring Provider First Name JAMEY Referring Provider Last Name REGGIE Referring Provider Speciality Internal M edicine Referred Organization [facility] Referred Address [facility] Referred Provider Specialty Allergy/Immu nology General Notes Sarahy RABAGO Station Mechanic Apprentice 08/03/2024 12:26:05 PM > Referral and ov note faxed., Joana RABAGO Referrals 08/06/2024 11:35:01 AM > medical referral and notes have been faxed to [facility] at [phone], Joana RABAGO Referrals 08/13/2024 12:17:03 PM > referral has been faxed again to [facility] at [phone], Sveta RABAGO Referrals 03/13/2025 09:52:12 PM > PATIENT WAS SEEN, NOTE IN CHART Referral Priority Routine Medications Medication SIG (Take, Route, Frequency, Duration) Notes Start Date End Date Status Amitriptyline HCl 25 MG Tablet TAKE 1 TABLET BY MOUTH EVERY DAY AT BEDTIME; Duration: 90 Active PARoxetine HCl 30 MG Tablet TAKE 1 TABLE T BY MOUTH EVERY DAY; Duration: 90 Active Reclast 5 MG/100ML Solution as directed Intravenous Active Omeprazole 20 MG Capsule Delayed Release 1 cap(s) orally once a day Active Rsglunsc-Dpoclfrao-YM 3.5-48761-4 Suspension 4 drops into affected ear Otic Three times a day; Duration: 10 days 05/02/2025 Active Entresto 24-26 MG Tablet 1 tablet Orally Twice a day Active Amoxicillin-Pot Clavulanate 500-125 MG Tablet 1 tablet Orally TID; Duration: 7 days 05/01/2025 Active Amoxicillin-Pot Clavulanate 500-125 MG Tablet 1 tablet Orally Three times a day; Duration: 7 days 05/01/2025 Active Cortisporin-TC 3.3-3-10-0.5 MG/ML Suspension 3 drops into affected ear Otic Three times a day; Duration: 10 days 05/01/2025 Active Amoxicillin-Pot Clavulanate 500-125 MG Tablet 1 tablet Orally TID; Duration: 7 days 05/01/2025 Active Carvedilol 6.25 MG Tablet 1 tablet with food Orally Twice a day Active LORazepam 0.5 MG Tablet 1 tablet Orally BID prn; Duration: 15 days 01/28/2023 Active Simvastatin 80 MG Tablet TAKE 1 TABLET B Y MOUTH EVERY DAY IN THE EVENING FOR 90 DAYS Orally daily; Duration: 90 days Active Immunizations Vaccine Route Administration Date Status Comme nts Influenza, Flublok IM Intramuscular 03/02/2024 Administere d Social History Tobacco Use: Social History Observation Description Date Details (start date - stop date) Never Smoker NA - NA Social History Tobacco Use: Social Info Question Answer Notes Smoking Are you a: never smoker Additional Details Category Social Info Options Details General 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 Past year's travels: none alcohol use: yes occasoinal glass of wine drug use: no Hobbies/Exercise habits: no regu lar exercize Coffee/Tea/Soda: yes coffee 1-2/day, decaf tea occasionally at night, no soda Marital Status single experience no Living with ex- smokers in household no pt never sm oked Problems Problem Type SNOMED Code ICD Code Onset Dates Problem Status W/U Status Risk Notes Problem Insomnia (583743828) Insomnia (G47.00) Active confirmed Problem Obstructive sleep apnea (29212643) Obstructive sleep apnea (G47.33) Active confirmed Problem Essential hypertension (30843115) Essential (primary) hypertension (I10) Active confirmed Problem Thyroid nodule (268898301) Thyroid nodule (E04.1) Active confirmed Problem Cardiomegaly (1476212) LVH (left ventricular hypertrophy) (I51.7) Active confirmed Problem Mixed hyperlipidemia (472155596) Mixed hyperlipidemia (E78.2) Active confirmed Problem Anxiety (66292619) Anxiety (F41.9) Active confi rmed Problem Recurrent major depression in full remission (96605536) Recurrent major depressive disorder, in full remission (F33.42) Active confirmed Problem Moderate recurrent major depression (07203323) Moderate episode of recurrent major depressive disorder (F33.1) Active confirmed Problem Acute maxillary sinusitis (21581246) Acute non-recurrent maxillary sinusitis (J01.00) Active confirmed Problem Age-related osteoporosis (817939631) Osteoporosis without current pathological fracture, unspecified osteoporosis type (M81.0) Active confirmed Problem Heart failure (15690264) Chronic congestive heart failure, unspecified heart failure type (I50.9) Active confirmed Problem Gastroesophageal reflux disease with esophagitis (disorder) (122015638) Gastroesophageal reflux disease with esophagitis without hemorrhage (K21.00) Active confirmed Problem Obese class I (finding) (486151468897391) Obesity, class 1 (E66.811) Active confirmed Vital Signs Blood pressure diastolic 86 mm Hg 05/01/2025 Height 62.75 in 05/01/2025 Blood pressure systolic 136 mm Hg 05/01/2025 Weight 168.8 lbs 05/01/2025 BMI 30.14 kg/m2 05/01/2025 Encounters Encounter Location Date Provider Diagnosis [facility] [address] [place] [address] 09/26/2024 JAMEY PAREDES Thyroid nodule E04.1 ; Iron deficiency E61.1 ; Mixed hyperlipidemia E78.2 ; Recurrent major depressive disorder, in full remission F33.42 ; Gastroesophageal reflux disease with esophagitis without hemorrhage K21.00 ; Osteoporosis without current pathological fracture, unspecified osteoporosis type M81.0 ; Obstructive sleep apnea G47.33 ; Chronic congestive heart failure, unspecified heart failure type I50.9 ; Obesity, class 1 E66.811 and Encounter for general adult medical examination without abnormal findings Z00.00 [facility] [address] [place] [address] 05/01/2025 JAMEY PAREDES Right ear pain H92.[address] [address] 07/25/2024 JAMEY PAREDES Acute non-recurrent maxillary sinusitis J01.[address] [address] 04/03/2025 JAMEY PAREDES Thyroid nodule E04.1 ; Mixed hyperlipidemia E78.2 ; Recurrent major depressive disorder, in full remission F33.42 ; Gastroesophageal reflux disease with esophagitis without hemorrhage K21.00 ; Osteoporosis without current pathological fracture, unspecified osteoporosis type M81.0 ; Obstructive sleep apnea G47.33 ; Chronic congestive heart failure, unspecified heart failure type I50.9 ; Obesity, class 1 E66.811 ; Iron deficiency E61.1 and Impaired fasting glucose R73.[address] [address] 04/30/2025 JAMEY PAREDES [facility] [address] [address] 07/25/2024 JAMEY PAREDES [facility] [address] [place] [address] 05/02/2025 JAMEY PAREDES [facility] [address] [place] [address] 05/02/2025 JAMEY PAREDES [facility] [address] [place] [address] 05/02/2025 JAMEY PAREDES [facility] [address] [place] [address] 05/02/2025 JAMEY PAREDES [facility] [address] [place] [address] 05/01/2025 JAMEY PAREDES [facility] [address] [place] [address] 08/13/2024 JAMEY PAREDES [facility] [address] [address] 08/13/2024 JAMEY [facility] [address] [place] [address] 08/03/2024 JAMEY PARDEES Assessments Encounter Date Diagnosis (ICD Code) Assessment Notes Treatment Notes Treatment Clinical Notes Section Notes 07/25/2024 Acute non-recurrent maxillary sinusitis (ICD-10 - J01.00) She was in her usual state of health until about 1 week ago when she began with pain in her left cheek, left upper molars, postnasal drip. She had a congested cough due to the postnasal drip. She had drainage and redness and irritation of her left eye which was treated by her eye doctor for eyedrops. She called her cryptologic technician, Dr. Santos who was unable to see her. She also has a sore throat which is chronic which she attributes to her CPAP. She denies any fever. Exam was significant for tenderness to percussion of her her left maxillary sinus which she demonstrated for me. Symptoms are highly suggestive of acute left maxillary sinusitis. She has had this in the past and feels that she responded better with a course of prednisone concurrently with antibiotics which is quite reasonable. Prednisone and Augmentin were sent to her pharmacy. She will call if not better. 04/03/2025 Thyroid nodule (ICD-10 - E04.1) No further follow-up needed. 04/03/2025 Mixed hyperlipidemia (ICD-10 - E78.2) LDL cholesterol is 110. With her best efforts at diet, and actually increased from 107. We are discussing primary prevention as she has no evidence of atherosclerotic heart disease, CAD, PVD, CVD. However, her LP(a) is very elevated at 214.5. I would shoot for a goal LDL of less than 100, lower is better. At this time, we will increase simvastatin from 40 mg up to 80 mg. She would like to continue to work with weight loss, diet prior to adding second medication such as ezetimibe. Will recheck in 3 months and consider it then. 09/26/2024 Thyroid nodule (ICD-10 - E04.1) No further follow-up needed. 09/26/2024 Iron deficiency (ICD-10 - E61.1) She remains on iron supplementation. Will check iron though it is unclear why she had iron deficiency. There is no history of any bleeding and her recent colonoscopy was unremarkable. This may be related to omeprazole. 05/01/2025 Right ear pain (ICD-10 - H92.01) She has had pain in her right ear for the past 2 to 3 days after extensively manipulating her ear and attempts to clean it out. She has a history of ear eczema . This does have the appearance of eczema of the pinna which may be autoimmune or topical and related to shampoo. Discussed rinsing it well after shampooing. In addition presentation is suggestive of otitis externa with purulent drainage. No foreign body seen. I advised systemic antibiotics, steroid drops. 09/26/2024 Mixed hyperlipidemia (ICD-10 - E78.2) LDL cholesterol is 107. We are discussing primary prevention as she has no evidence of atherosclerotic heart disease, CAD, PVD, CVD. However, her LP(a) is very elevated at 214.5. I would shoot for a goal LDL of less than 100, lower is better. At this time, we will increase simvastatin from 20 mg currently to 40 mg 04/03/2025 Recurrent major depressive disorder, in full remission (ICD-10 - F33.42) She takes paxil 30mg which is working well. She still grieves over her father. Mom going into Hand Talk. No med chg requested She has not needed lorazepam in > 1 years . She sees a therapist [id number] 09/26/2024 Recurrent major depressive disorder, in full remission (ICD-10 - F33.42) She takes paxil 30mg which is working well. No chg requested She has not needed lorazepam in > 1 years ). SHe sees a therapist [id number] 04/03/2025 Gastroesophageal reflux disease with esophagitis without hemorrhage (ICD-10 - K21.00) She remains on daily omeprazole BID, as suggested by Dr Rebollar. Small area of Rascon's was found on a previous EGD. 09/26/2024 Gastroesophageal reflux disease with esophagitis without hemorrhage (ICD-10 - K21.00) She remains on daily omeprazole. Small area of Rascon's was found on a previous EGD. It was gone on most recent EGD. She no longer gets Sx at night since increasing omeprazole to BID. SHe thinks she may be able to reduce omeprazole if she is successful at weight loss. 04/03/2025 Osteoporosis without current pathological fracture, unspecified osteoporosis type (ICD-10 - M81.0) She had her third Reclast infusion, done through Dr. Mcwilliams. Repeat dexa is pending. T-score increased from -3.6 in 2021 up to -3.2 on her recent DEXA from 2 weeks ago, February 2025. She continues calcium plus D supplement, yearly Reclast. 04/03/2025 Obstructive sleep apnea (ICD-10 - G47.33) She wears CPAP nightly. No issues. 09/26/2024 Osteoporosis without current pathological fracture, unspecified osteoporosis type (ICD-10 - M81.0) She had her second Reclast infusion, done through Dr. Mcwilliams. SHe will see him again soon and repeat dexa. 09/26/2024 Obstructive sleep apnea (ICD-10 - G47.33) She wears CPAP nightly. No issues. 04/03/2025 Chronic congestive heart failure, unspecified heart failure type (ICD-10 - I50.9) Ejection fraction of 45 to 50% with grade 1 diastolic dysfunction on echocardiogram in 2021 came up to normal on repeat echo in March 2024 after she began using CPAP to treat sleep apnea. CHF is well compensated now. 04/03/2025 Obesity, class 1 (ICD-10 - E66.811) DIscussed diet, exercise, portion control. She will maintain efforts as she is motivated. I rec [employer] 09/26/2024 Chronic congestive heart failure, unspecified heart failure type (ICD-10 - I50.9) Ejection fraction of 45 to 50% with grade 1 diastolic dysfunction on echocardiogram in 2021 came up to normal on repeat echo in March 2024 after she began using CPAP to treat sleep apnea. She is still followed by cardiology but there does not appear to be any active sign of CHF presently. 09/26/2024 Obesity, class 1 (ICD-10 - E66.811) She has gained about 35 pounds in the past year due to overeating . She plans on trying that around and hopes to be down to 153 pounds by her next visit in August 2024. 04/03/2025 Iron deficiency (ICD-10 - E61.1) She remains on iron supplementation with normal iron levels now. There is no history of any bleeding and her colonoscopy was unremarkable. This may be related to omeprazole. 09/26/2024 Encounter for general adult medical examination without abnormal findings (ICD-10 - Z00.00) 04/03/2025 Impaired fasting glucose (ICD-10 - R73.01) A1C=5.8. monitor 04/03/2025 Other 45 min counseli ng re above 07/25/2024 Other Patient request ed this 19-minute virtual encounter using [employer] audio and video connections from my office to her home. Plan Of Treatment Future Test Test Name Order Date COMP. METABOLIC 03/24/2022 LIPID PROFILE 06/24/2022 LIPID PANEL 09/23/2023 TSH WITH REFLEX TO FT4 (ADULTS ONLY) 25OH VITAMIN D 09/23/2023 CBC (COMPLETE BLOOD COUNT) WITH DIFF COMPREHENSIVE METABOLIC PANEL 09/23/2023 FERRITIN 09/23/2023 VITAMIN B12 09/23/2023 CBC With Differential/Platelet-[id number] Hgb A1c with eAG Estimation-[id number] 07/04 LP+Non-HDL Cholesterol-[id number] 07/04/2025 Comp. Metabolic Panel [phone] Next Appt Details Provider Name:JAMEY PAREDES, 07/26/2025 01:00:00 PM, [address] [place], [address], Insurance Providers Payer Name Payer Address Payer Phone Subscriber Number Group Number Insured Name Patient Relationship to Insured Coverage Start Date Coverage End Date [facility] [address] [place] [id number] JOANA GR Self - patient is the insured 3 Medical (General) History Medical History History ICD Code high cholesterol depression IBS Surgical History Surgery Date(Month/Year) sinus surgery
== END 2025-05-27 14:50 | disposition home or self-care (01) ==
LOC: HO.MAMMO 14:49
PROVIDERS: PCP Internal Medicine; Visit Provider Internal Medicine
DX: Z12.31 Encounter for screening mammogram for malignant neoplasm of breast (principal)
CPT/HCPCS: 77063; 77067

== ENCOUNTER → 2025-05-27 15:00 | Outpatient (BNV) | payer OTHER, SELFPAY | PROVIDERS: PCP Internal Medicine; Visit Provider Internal Medicine | DX: Z12.31 Encounter for screening mammogram for malignant neoplasm of breast (principal) | CPT/HCPCS: 77063; 77067 ==